=== PATIENT | female | born 1990 | race Two or more races ===

== ENCOUNTER 2018-03-20 19:33 | Emergency (ER) | payer OTHER ==
[~2018-03-20] VITALS: Ht 165.1 cm; Wt 73.0 kg
[2018-03-20 19:39] VITALS: BP 123/61
== END 2018-03-20 20:16 | disposition home or self-care (01) ==
LOC: ED 20:10
DX: T78.40XA Allergy, unspecified, initial encounter (principal); R59.1 Generalized enlarged lymph nodes; X58.XXXA Exposure to other specified factors, initial encounter
CPT/HCPCS: 99283; J7512